=== PATIENT | female | born 1985 | race Caucasian/White ===

== ENCOUNTER 2017-10-06 09:57 | Emergency (ER) | payer OTHER ==
--- NOTE | 2017-10-06 10:22 | ED Physician Documentation ---
PD HPI UPPER EXT INJURY - Stated complaint Stated Complaint: RT HAND/THUMB PX - Chief complaint Chief Complaint: Ext Problem - History obtained from History obtained from: Patient - History of Present Illness Location: Right, Finger (thumb) Type of injury: Twist Where injury occurred: Home Timing - onset: Yesterday Timing - duration: Days (1) Timing - details: Gradual onset, Still present Improved by: Rest, Immobilization Worsened by: Moving, Palpating Associated symptoms: Swelling, Discolored Contributing factors: No: Anticoagulated Similar symptoms before: Has not had sx before Recently seen: Not recently seen - Additonal information Additional information: 32 y/o female awoke yesterday with pain and redness in the left proximal thumb. She grasped the thumb and "cracked" her joints and the pain was worse after that and this morning the pain is unbearable. She is not able to move it even a small amount without severe pain. Review of Systems Constitutional: denies: Fever Ears: denies: Ear pain Nose: denies: Congestion Throat: denies: Sore throat Respiratory: denies: Cough GI: denies: Vomiting PD PAST MEDICAL HISTORY - Past Medical History Past Medical History: Yes Psych: Depression - Past Surgical History Past Surgical History: No - Present Medications Home Medications: Ambulatory Orders Medication Instructions Recorded Confirmed PARoxetine [Paxil] 1 tab PO DAILY 10/06/17 10/06/17 - Allergies Allergies/Adverse Reactions: Allergies Allergy/AdvReac Type Severity Reaction Status Date / Time No Known Drug Allergies Allergy Verified 10/06/17 10:04 - Social History Does the pt smoke?: No Smoking Status: Never smoker Does the pt drink ETOH?: Yes Does the pt have substance abuse?: No - Immunizations Immunizations are current?: Yes Immunizations: TDAP current <10years PD ED PE NORMAL - Vitals Vital signs reviewed: Yes (normal ) - General General: No acute distress, Well developed/nourished - HEENT HEENT: Atraumatic, PERRL - Respiratory Respiratory: No respiratory distress - Derm Derm: Normal color, Warm and dry, No rash - Extremities Extremities: No deformity, Other (There is swelling redness and tenderness to the proximal phlange on the right thumb over the ventral surface and she is not able to extend the thumb without severe pain. distal n/v is intact. ) - Neuro Neuro: No motor deficit, No sensory deficit Eye Opening: Spontaneous Motor: Obeys Commands Verbal: Oriented GCS Score: 15 - Psych Psych: Normal mood, Normal affect Results - Vitals Vitals: Vital Signs - 24 hr 10/06/17 10/06/17 10:00 11:54 Temperature 36.4 C L Heart Rate 62 64 Respiratory 14 16 Rate Blood Pressure 107/74 111/74 O2 Saturation 98 97 Oxygen O2 Source Room air - Rads (name of study) right thumb Radiology: Prelim report reviewed (Impression: Negative right thumb radiography. ), EMP read indepedently, See rad report PD MEDICAL DECISION MAKING - ED course Complexity details: reviewed results, re-evaluated patient, considered differential, d/w patient, d/w family, d/w parts consultant (Iker recommends placement of a splint and toradal and follow up with him today at 2pm. ) Departure - Departure Disposition: 01 Home, Self Care Clinical Impression: Pain of right thumb Condition: Stable Follow-Up: Yoav Dong MD [Provider Admit Priv/Credential] - Comments: Today the redness and swelling of her thumb and the severe pain are concerning for possible infection or inflammation. Evaluation by the orthopedic doctor is indicated And we would like you to go across the street to see the orthopedic surgeon this afternoon at 2 PM. Forms: Activity restrictions
--- NOTE | 2017-10-06 11:23 | XRAY Preliminary Report ---
Exam: XR FINGER(S) RT IMPRESSION: Negative right thumb radiography. [facility] SITE ID: [id number]
--- NOTE | 2017-10-06 11:25 | XRAY Report ---
EXAM: RIGHT THUMB radiography EXAM DATE: 10/06/2017 10:27 AM. CLINICAL HISTORY: thumb pain and swelling . COMPARISON: None. TECHNIQUE: 3 views. FINDINGS: Bones: No fracture or bone lesion. Joints: No subluxations. Soft Tissues: No soft tissue swelling. IMPRESSION: Negative right thumb radiography. [facility] Referring Provider Line: [phone] SITE ID: [id number]
[2017-10-06 11:55] VITALS: BP 111/74
[2017-10-06] MEDS ORDERED: KETOROLAC 60 MG/2 ML VIAL IM STA (12:06)
[2017-10-06] MEDS ORDERED: KETOROLAC 60 MG/2 ML VIAL ONE (12:25)
== END 2017-10-06 12:45 | disposition home or self-care (01) ==
LOC: ED 09:57
DX: M79.641 Pain in right hand (principal); R22.9 Localized swelling, mass and lump, unspecified; X50.9XXA Other and unspecified overexertion or strenuous movements or postures, initial encounter; Y92.009 Unspecified place in unspecified non-institutional (private) residence as the place of occurrence of the external cause
CPT/HCPCS: 29125; 73140; 96372; 99283; 99284